=== PATIENT | female | born 1955 | race Caucasian/White ===

== ENCOUNTER 2018-11-01 08:01 | Emergency (ER) | payer BC ==
[~2018-11-01] VITALS: Ht 154.9 cm; Wt 63.0 kg
[~2018-11-01 08:01] MED LIST: HYDR-4011 PO; IBUP-1542 PO
[2018-11-01 08:08] VITALS: Ht 154.9 cm; Wt 63.0 kg
[2018-11-01 13:46] VITALS: BP 137/62; PULSE 88; RESP 19
== END 2018-11-01 13:47 | disposition home or self-care (01) ==
LOC: FTE 08:01
DX: S22.42XA Multiple fractures of ribs, left side, initial encounter for closed fracture (principal); J45.909 Unspecified asthma, uncomplicated; S00.83XA Contusion of other part of head, initial encounter; V13.9XXA Unspecified pedal cyclist injured in collision with car, pick-up truck or van in traffic accident, initial encounter; Z85.841 Personal history of malignant neoplasm of brain
CPT/HCPCS: 70486; 71045; 71100; 81001; 96372; 99285; J1885; Z7610; 81003